=== PATIENT | female | born 1985 | race Caucasian/White ===

== ENCOUNTER → 2017-01-04 | Outpatient (CLI) | payer OTHER ==
[~2017-01-04] MED LIST: AMOXICILLIN500 M1 PO; NO MEDICATIONS; PRENATAL1 TA1 PO; VICODIN 5/1 TAB 5/50 PO
== END | disposition home or self-care (01) ==
LOC: CBAR 10:13
DX: Z01.818 Encounter for other preprocedural examination (principal); E66.01 Morbid (severe) obesity due to excess calories
CPT/HCPCS: G0463; J1200; J2310

== ENCOUNTER → 2017-01-29 | Outpatient (CLI) | payer OTHER | END | disposition home or self-care (01) | LOC: CBAR 10:13 | DX: E66.01 Morbid (severe) obesity due to excess calories (principal) | CPT/HCPCS: G0463 ==

== ENCOUNTER → 2017-02-26 | Outpatient (CLI) | payer OTHER | END | disposition home or self-care (01) | LOC: CBAR 06:35 | DX: Z01.818 Encounter for other preprocedural examination (principal); E66.01 Morbid (severe) obesity due to excess calories | CPT/HCPCS: G0463 ==

== ENCOUNTER → 2017-03-15 | Outpatient (CLI) | payer OTHER ==
--- NOTE | ~2017-03-15 | CR97 ---
[facility] A Service of [facility] & [facility] RADIOLOGY TEXT RESULTS PATIENT: SLY WALLS LOCATION: [facility] : 87 UNIT #: [id number] AGE: [address]: Napoleon Rodriguez MD SEX: F ORDER DR: [id number] [facility] [address] [place], [place] [address] [id number] O MR#: [id number] Acc #: [id number] NAME: SLY WALLS : 1985 SEX: F STUDY DATE/TIME: 03/15/2017 7:31 UNIT: [facility] ROOM: STUDY DESCRIPTION: CR Esophagram Attending Physician: Napoleon Rodriguez M.D. Referring Physician: Napoleon Rodriguez M.D. Ordering Physician: Napoleon Rodriguez M.D. Primary Care Physician: Enrique David M.D. MEDICAL IMAGING REPORT This report is preliminary unless electronic signature is present EXAM Barium esophagram. INDICATION Morbid obesity. Preop for Lap-Band surgery. The fluoroscopy time is 0.4 minutes. 15 fluoroscopic images were taken. FINDINGS Thoracic esophagus is normal in course and caliber. No evidence for hiatal hernia or reflux. IMPRESSION Normal study. Dictated by... Manjit Galaviz M.D. THIS IS AN ELECTRONICALLY VERIFIED REPORT Manjit Galaviz M.D. at 03/16/2017 9:47 AM DOMINICK/iram TD: 03/15/2017 20:15 JOB #: [id number] MEDICAL IMAGING REPORT Page 1 of 1 COPY
--- NOTE | ~2017-03-15 | CR63 ---
[facility] A Service of [facility] & [facility] RADIOLOGY TEXT RESULTS PATIENT: SLY WALLS LOCATION: [facility] : 89 UNIT #: [id number] AGE: [address]: Napoleon Rodriguez MD SEX: F ORDER DR: [id number] [facility] [address] [place], [place] [address] [id number] O MR#: [id number] Acc #: [id number] NAME: SLY WALLS : 1985 SEX: F STUDY DATE/TIME: 03/15/2017 7:38 UNIT: [facility] ROOM: STUDY DESCRIPTION: CR Chest 2 View Attending Physician: Napoleon Rodriguez M.D. Referring Physician: Napoleon Rodriguez M.D. Ordering Physician: Napoleon Rodriguez M.D. Primary Care Physician: Kalani Dvaid MEDICAL IMAGING REPORT This report is preliminary unless electronic signature is present EXAM Chest PA and lateral 03/15/2017 HISTORY Shortness of breath on exertion, preop laparoscopic gastric banding today. FINDINGS PA and lateral examination of the chest upright shows a good expansion of the parenchyma with a normal distribution of the pulmonary vascularity. There is no indication of congestion, effusion, infiltrate, tumor, or nodular density. The pleural reflections and diaphragmatic contours are normal. The cardiac silhouette and mediastinal anatomy is within normal limits. IMPRESSION Normal chest. Dictated by... Be Granados M.D. THIS IS AN ELECTRONICALLY VERIFIED REPORT Be Granados M.D. at 03/15/2017 4:30 PM FLORESITA/marcie TD: 03/15/2017 11:16 JOB #: [id number] MEDICAL IMAGING REPORT Page 1 of 1 COPY
--- NOTE | ~2017-03-15 | EKG ---
PATIENT: SLY WALLS UNIT #: [id number] Ventricular Rate: 67 BPM Atrial Rate: 67 BPM P-R Interval: 154 ms QRS Duration: 82 ms Q-T Interval: 386 ms QTC Calculation(Bezet): 407 ms P [place]: 26 degrees Calculated R [place]: 9 degrees Calculated T [place]: 11 degrees Diagnosis Line: Normal sinus rhythm Diagnosis Line: Normal ECG Diagnosis Line: No previous ECGs available Diagnosis Line: Confirmed by KENYON PEREZ MD ([id number]) on Diagnosis Line: 03/15/2017 1:37:30 PM INTERPRETING MD: CHRIS SOLITARIO
[2017-03-15 09:16] LABS: HEMATOCRIT 34.3 % (35.0-45.0); HEMOGLOBIN 10.5 gm/dL (12.0-16.0); MEAN CELL VOLUME 74.4 FL (83-96); MEAN CORPUSCULAR HEMOGLOBIN 22.8 PG (28-34); MEAN CORPUSCULAR HGB CONC 30.7 g/dL (30-36); MEAN PLATELET VOLUME 7.2 FL (6.5-11.5); RED BLOOD COUNT 4.61 X10e (3.90-5.30); RED CELL DISTRIBUTION WIDTH 16.2 % (11.0-15.5); WHITE BLOOD COUNT 9.4 X10e3 (4.0-10.5)
[2017-03-15 09:52] LABS: ALBUMIN SERUM 3.9 g/dL (3.5-5.0); BILIRUBIN,TOTAL 0.6 mg/dL (0.2-2.0); CALCIUM SERUM 9.2 mg/dL (8.4-10.2); CREATININE SERUM 0.6 mg/dL (0.6-1.4); GLOM FILT RATE Estimated 122.3 mL/min (>60); POTASSIUM 4.3 mmol/L (3.5-5.1); PROTEIN TOTAL SERUM 7.2 g/dL (6.0-8.3)
== END | disposition home or self-care (01) ==
LOC: CRAD 07:28 → CAMB 08:30
PROVIDERS: Surgery
DX: Z01.818 Encounter for other preprocedural examination (principal); K44.9 Diaphragmatic hernia without obstruction or gangrene; E66.01 Morbid (severe) obesity due to excess calories
CPT/HCPCS: 36415; 71020; 74220; 80053; 80061; 84443; 85027; 93005

== ENCOUNTER → 2017-03-27 | Day surgery (SDC) | payer OTHER ==
--- NOTE | ~2017-03-27 | OR ---
Unit #: [id number] #: [id number] Patient: SLY WALLS [id number] [address] [address] [id number] O MR#: [id number] NAME: SLY WALLS ROOM: Date of Procedure: 03/27/2017 Admission Date: 03/27/2017 Surgeon: Napoleon Rodriguez M.D. : 1985 Attending Physician: Napoleon Rodriguez M.D. Primary Care Physician: Kalani David OPERATIVE REPORT PREOPERATIVE DIAGNOSIS Chronic morbid obesity, BMI of 35. POSTOPERATIVE DIAGNOSES 1. Chronic morbid obesity, BMI of 35. 2. Paraesophageal hiatal hernia. PROCEDURES PERFORMED 1. Laparoscopic adjustable gastric band. 2. Laparoscopic paraesophageal hiatal hernia repair. [employer] SUPERVISOR Christiano Cardoza M.D. ANESTHESIA General endotracheal anesthesia. ESTIMATED BLOOD LOSS Minimal. IV FLUIDS 800 crystalloid. COMPLICATIONS None. INDICATIONS FOR PROCEDURE The patient is a 32-year-old with chronic morbid obesity. DESCRIPTION OF PROCEDURE The patient was taken to the operating room and placed in supine position. General anesthesia was induced. The abdomen was prepped and draped. A 3-cm incision was then made left of the midline. A 10-mm Visiport was then placed intraabdominal under direct vision. The abdomen was insufflated to 15 mmHg with CO2. The patient was then placed in a steep reversed Trendelenburg. General inspection of the abdomen revealed what appeared to be a paraesophageal hernia. This was identified with a defect at the diaphragm using anterior palpation with the instrument. We then made a small incision in the subxiphoid region. A Ryan liver retractor was then placed intraabdominal and used to retract the left lobe of the liver upward to further expose the paraesophageal hernia and GE junction. I then placed a 5-mm port in the right upper quadrant, a 10-mm Unit #: [id number] #: [id number] Patient: SLY WALLS port in the left upper quadrant, and another 5-mm port in the left lower quadrant. The stomach was retracted medial and downward. Upon retracting the stomach, we took down the paraesophageal ligament, exposing the right and left fanta at the paraesophageal hernia. Any hernia sac was reduced. We then repaired the paraesophageal hernia using interrupted #0 Ethibond sutures in a doirgx-gl-wxtam type fashion. This formed a snug repair to the anterior esophagus. We then retracted the stomach medially and further exposed the angle of His using Bovie electrocautery. The stomach was then retracted laterally. We then took down the hepatogastric ligament with Bovie electrocautery. This exposed the right fanta. Using blunt dissection, I created a retrogastric tunnel from this point to the angle of His. The band was then placed intraabdominal through the 10-mm port site. This was then brought through the retrogastric tunnel in a pars flaccida technique. The band was then closed anteriorly to form a 20-mL to 25-mL anterior gastric pouch. The fundus was then secured to the anterior pouch to prevent movement around the stomach using two interrupted #0 Ethibond sutures. A third suture was then used as a gathering stitch from the lesser curve to the anterior stomach, gathering and imbricating the remaining fundus of the stomach. The tubing was then brought out through the midline 10-mm port site. All ports and the Ryan liver retractor were removed under direct vision with no evidence of abdominal hemorrhage. A polypropylene mesh was then secured to the posterior face of the laparoscopic band port. This was secured using #0 Ethibond suture. This was then cut to shape. The port was then connected to the tubing and placed into a subcutaneous pocket just anterior to the rectus sheath. Its position was then confirmed. All tubing was then placed intraabdominal. The wounds were then closed with interrupted 4-0 Vicryl. The patient tolerated the procedure well and was sent to the recovery room in good condition. Dictated by... Jen Fuentes/yanna TD: 03/28/2017 03:49 JOB #: [id number] OPERATIVE REPORT Page 1 of 1 X Napoleon Rodriguez MD X PROCEDURE OPERATIVE NOTE
--- NOTE | ~2017-03-27 | CR7 ---
[facility] A Service of [facility] RADIOLOGY TEXT RESULTS PATIENT: SLY WALLS LOCATION: [facility] : 89 UNIT #: [id number] AGE: [address]: Napoleon Rodriguez MD SEX: F ORDER DR: [id number] [facility] [address] [place], [place] [address] [id number] O MR#: [id number] Acc #: [id number] NAME: SLY WALLS : 1985 SEX: F STUDY DATE/TIME: 03/27/2017 0912 UNIT: [facility] ROOM: STUDY DESCRIPTION: CR Abdomen Single AP View Attending Physician: Napoleon Rodriguez M.D. Ordering Physician: Napoleon Rodriguez M.D. Primary Care Physician: Enrique David M.D. MEDICAL IMAGING REPORT This report is preliminary unless electronic signature is present EXAM Abdomen, one view, 03/27/2017, 0912 hours. CLINICAL HISTORY Postop gastric Lap-Band placement today. History of abdominal pain. COMPARISON Esophagram, 03/15/2017. FINDINGS Single supine view of the abdomen demonstrates placement of a Lap-Band overlying the left aspect of the T11 costovertebral junction. The band is oriented at 66 degrees from vertical. Radiopaque tubing courses inferiorly to a port overlying the left pedicle of L5. The bowel gas pattern is unremarkable. There is minimal atelectasis at the left lung base. IMPRESSION Postop Lap-Band placement overlying the left T11 costovertebral junction oriented at 66 degrees from vertical. Radiopaque tubing courses inferiorly to a port projecting over the left pedicle of L5. Bowel gas pattern is unremarkable. Dictated by... Elvia Mattson M.D. THIS IS AN ELECTRONICALLY VERIFIED REPORT Elvia Mattson M.D. at 03/27/2017 2:27 PM JULIA/kd [facility] A Service of [facility] RADIOLOGY TEXT RESULTS PATIENT: SLY WALLS LOCATION: [facility] #: [id number] : [birth year] UNIT #: [id number] AGE: [address]: Napoleon Rodriguez MD SEX: F ORDER DR: TD: 03/27/2017 11:23 JOB #: [id number] MEDICAL IMAGING REPORT Page 1 of 1 COPY
== END | disposition home or self-care (01) ==
LOC: CSUR 06:31
DX: E66.01 Morbid (severe) obesity due to excess calories (principal); K44.9 Diaphragmatic hernia without obstruction or gangrene; J45.909 Unspecified asthma, uncomplicated; Z68.35 Body mass index [BMI] 35.0-35.9, adult; Z72.4 Inappropriate diet and eating habits; Z87.891 Personal history of nicotine dependence; Z98.51 Tubal ligation status
CPT/HCPCS: 74000; C1781; J0330; J0690; J1650; J1885; J2250; J2405; J2710; J3010